=== PATIENT | female | born 2000 | race Caucasian/White ===

== ENCOUNTER 2024-01-07 12:52 | Emergency (ER) | payer BC, SELFPAY ==
[2024-01-07 12:56] VITALS: BP 132/97
[2024-01-07 13:20] LABS: % Basophils 0.5 % (0-2); % Eosinophils 1.2 % (0-6); % Immature Granulocytes 0.5 % (0-0.5); % Lymphocytes 15.5 % (20.5-51.1); % Monocytes 5.7 % (1.7-9.3); % Neutrophils 76.6 % (42.2-75.2); Absolute Basophils 0.1 10^3/uL (0-0.2); Absolute Eosinophils 0.1 10^3/uL (0-0.7); Absolute Immature Granulocytes 0.1 10^3/uL (0-0.05); Absolute Lymphocytes 1.7 10^3/uL (1.2-3.4); Absolute Monocytes 0.6 10^3/uL (0.1-0.6); Absolute Neutrophils 8.3 10^3/uL (1.4-6.5); Hematocrit 42.6 % (37.0-47.0); Hemoglobin 14.4 g/dL (12.0-16.0); Mean Corp Hgb Conc. 33.8 g/dL (33.0-37.0); Mean Corpuscular Hgb 27.5 pg (27.0-31.0); Mean Corpuscular Volume 81.5 fL (81.0-99.0); Mean Platelet Volume 9.2 fL (7.4-10.4); Nucleated Red Blood Cells % 0 %; Platelet Count 318 10^3/uL (130-400); Red Blood Cell Count 5.23 10^6/uL (4.20-5.40); Red Cell Dist. Width 13.4 % (11.5-14.5); White Blood Cell Count 10.8 10^3/uL (4.8-10.8)
[2024-01-07 13:32] LABS: ALT (SGPT) 24 U/L (0-35); AST (SGOT) 23 U/L (14-36); Albumin 4.9 g/dl (3.5-5.0); Alkaline Phosphatase 86 U/L (38-126); Blood Urea Nitrogen 13 mg/dl (7-17); Calcium 9.8 mg/dl (8.4-10.2); Carbon Dioxide 24 mmol/L (22-30); Chloride 102 mmol/L (98-107); Glucose 91 mg/dl (70-99); Potassium 4.6 mmol/L (3.5-5.1); Sodium 140 mmol/L (135-145); Total Bilirubin 0.4 mg/dl (0.2-1.3); Total Protein 7.5 g/dl (6.3-8.2); eGFR > 60.00
[2024-01-07 13:33] LABS: Alcohol None Detected
[2024-01-07 13:47] LABS: HCG, Serum Qualitative Screen Negative
--- NOTE | 2024-01-07 14:08 | ED.GENMED ---
History of Present Illness
General
Chief Complaint: Suicidal Ideation
Source: patient
Exam Limitations: none
Time Seen by Provider: 01/07/24 13:48
Nursing documentation reviewed up to this point in time: agreed with
History of Present Illness
History of Present Illness:
23-year-old female transgender into male presents for suicidal ideation. He has been evaluated by [facility] and they are in the process of finding inpatient placement. Here for medical clearance
He denies headache, chest pain, abdominal pain, trouble breathing.
Past History
Past History
ED Past Medical History: Psychiatric (Depression/anxiety, SI, previous suicide attempt, schizoaffective disorder, transgender female to male)
Social History
Tobacco: Non-smoker
Alcohol: None
Personal: Single
Review of Systems
Review of Systems
Allergies reviewed?: Yes
All Other Systems: ROS reviewed and negative except as documented in HPI and ROS
Constitutional: Denies fever or fatigue
Respiratory: Denies trouble breathing
Cardiac: Denies chest pain
ABD/GI: Denies abdominal pain, nausea, vomiting, diarrhea or constipated
: Denies dysuria, frequency or difficulty voiding
Musculoskeletal: Reports no symptoms
Skin: Reports no symptoms
Neurological: Reports no symptoms
Psychiatric: Reports depression and suicidal
Phy Exam
Physical Exam
Physical Exam:
GENERAL: No acute distress. A&Ox3.
CONSTITUTIONAL: Afebrile.
EYES: Clear, conjunctivae normal
ENMT: moist mucus membranes, Pharynx nl
RESPIRATORY: Regular respirations, nonlabored, lungs clear.
CARDIOVASCULAR: Regular rate and rhythm, no murmurs, no rubs.
GI: Soft, nontender, normal BS
MUSCULOSKELETAL: Moves with ease. Well perfused.
SKIN: Warm, dry, pink
PSYCH: Normal mood and affect. Well kept, interactive and appropriate
NEUROLOGIC: Awake, alert and oriented. No focal neurological deficits
Course
Orders/Labs/Results
Orders:
Orders
01/07/24 12:54
1:1 Observation - Suicide/ Violent Behavior As Directed
Crisis Consult Urgent
Reason for Consult: sucidial ideation
01/07/24 13:12
Alcohol Urgent
CMP [Comprehensive Metabolic Panel] Urgent
Complete Blood Count/With Diff Urgent
HCG, Serum Qualitative Screen Urgent
Comment: ADD ON
01/07/24 13:16
Add On- LAB Urgent
Tests Added?: hcg qualitative
01/07/24 14:04
Fentanyl, Urine Urgent
Urine Drug Abuse Screen Urgent
Date Specimen was Collected: 01/07/24
Time Specimen was Collected: 13:05
Abnormal Lab Results
01/07/24 01/07/24
13:12 14:04
Abs Immat Gran (auto) 0.1 H 10^3/uL
(0-0.05)
Absolute Neuts (auto) 8.3 H 10^3/uL
(1.4-6.5)
Neutrophils % 76.6 H %
(42.2-75.2)
Lymphocytes % 15.5 L %
(20.5-51.1)
U Benzodiazepines Scrn Positive H
(Negative)
01/07/24 13:12
01/07/24 13:12
Vital Signs
Initial and Last Documented VS:
Initial Vital Signs
Temp Pulse Resp BP Pulse Ox
98.6 F 83 16 132/97 99
01/07/24 12:56 01/07/24 12:56 01/07/24 12:56 01/07/24 12:56 01/07/24 12:56
Last Documented Vital Signs
Temp Pulse Resp BP Pulse Ox
98.6 F 99 16 143/96 100
01/07/24 12:56 01/08/24 03:05 01/08/24 03:05 01/08/24 03:05 01/08/24 03:05
MDM/Problems Addressed
MDM/Problems Addressed:
23-year-old female transgender into male presents for suicidal ideation. He has been evaluated by [facility] and they are in the process of finding inpatient placement. Here for medical clearance
He denies headache, chest pain, abdominal pain, trouble breathing.
Afebrile, NAD
Appears calm, pleasant
3:00 p.m.
Labs unremarkable.
PE unremarkable
UDS + Benzodiazepines otherwise neg
[facility] has found placement at [facility]
Pt to remain 1:1 in room 34 until transport
*Critical Care Note
Total Time (30-74mins, 75-104mins- exclusive of procedures): Not Applicable
ED Attending Note
-
Portions of this chart may have been created with voice recognition software.� Occasional wrong word or��sound alike� substitutions may have occurred due to the inherent limitations of voice recognition software.
Discharge Plan
Departure
Patient Disposition: [facility]
Date of Disposition: 01/07/24
Time of Disposition: 15:08
Condition: Serious
Discharge Problem:
Suicidal ideation
Prescriptions:
No Action
hydrocodone-acetaminophen 1 EACH tablet
1 ea PO Q4HPRN PRN (Reason: pain) Qty: 8 0RF
Interventions
Interventions:
*Risk Screen - Suicide Last Done: 01/07/24 12:56
*General Assessment Last Done: 01/07/24 14:26
*Neglect/Abuse Screening Last Done: 01/07/24 12:56
ED- Fall Risk Assessment Last Done: 01/07/24 20:32
*ED COVID-19 Vaccine History Last Done: 01/07/24 14:26
*Nursing Disposition Last Done: 01/08/24 02:04
ED-Psychological Assessment Last Done: 01/07/24 14:22
Discharge Date and Time
Discharge Date/Time: 01/08/24 03:05
Print Language: GREENLAND[place]
[2024-01-07 14:36] LABS: Amphetamines Negative (Negative); Barbiturates Negative (Negative); Benzodiazepines Positive (Negative); Buprenorphine Negative (Negative); Cocaine Negative (Negative); Marijuana Negative (Negative); Methadone Negative (Negative); Methamphetamines Negative (Negative); Opiates Negative (Negative); Phencyclidine Negative (Negative); Tricyclic Antidepressants Negative (Negative)
[2024-01-07 15:00] LABS: Fentanyl, Urine Negative (Negative)
[2024-01-07 20:11] VITALS: BP 134/87
[2024-01-08 03:05] VITALS: BP 143/96
== END 2024-01-08 03:05 ==
LOC: EMR 12:52
PROVIDERS: Emergency Medicine; EMERGENCY PHYSICIAN Emergency Medicine; FAMILY PHYSICIAN Nurse Practitioner Family
DX: R45.851 Suicidal ideations (principal); F32.A Depression, unspecified; Z02.79 Encounter for issue of other medical certificate; F41.9 Anxiety disorder, unspecified; F25.9 Schizoaffective disorder, unspecified; F64.0 Transsexualism; Z91.51 Personal history of suicidal behavior
CPT/HCPCS: 99285; 80053; 80306; 80307; 82077; 84703; 85025